=== PATIENT | female | born 1965 ===

== ENCOUNTER 2024-06-27 07:32 | Outpatient (CLI) | payer OTHER, SELFPAY ==
--- NOTE | ~2024-06-27 | MR_ITS ---
MRI of the left shoulder Technique: Axial proton-density fat-sat images, coronal proton density fat-sat and T2 fat-sat images, and sagittal T1-weighted and T2 fat-sat images were acquired. Clinical History: Injury Findings: There is [id number] AC joint degenerative change. Small subacromial spur present. Cor acoclavicular, coracoacromial, and coracohumeral ligaments are intact. There is a 9 x 9 mm probable f ull-thickness tear of the distal supraspinatus tendon insertion region. There is mild supraspinatus a nd infraspinatus tendinosis. Subscapularis tendon is intact, with mild tendinosis. Tendon of long hea d of the biceps is poorly delineated, possibly ruptured and retracted distally. No labral tear is seen. Inferior glenohumeral ligament is intact. No degenerative change or effusion of the glenohumeral join t. No fluid distention of the subacromial/subdeltoid bursa. No muscle atrophy or edema evident. Impression: 9 x 9 mm probable full-thickness tear of the distal supraspinatus tendon insertion. Possible complete rupture of the proximal long head biceps tendon with distal retraction. Reviewed, dictated and finalized at location M. Impression: 9 x 9 mm probable full-thickness tear of the distal supraspinatus tendon insert ion. Possible complete rupture of the proximal long head biceps tendon with distal r etraction.
== END 2024-06-27 07:33 ==
DX: S46.002A Unspecified injury of muscle(s) and tendon(s) of the rotator cuff of left shoulder, initial encounter (principal); X58.XXXA Exposure to other specified factors, initial encounter
CPT/HCPCS: 73221